=== PATIENT | female | born 1965 | race Caucasian/White ===

== ENCOUNTER 2019-08-17 07:38 | Day surgery (SDC) | payer BC, SELFPAY ==
--- NOTE | 2019-08-11 17:03 | HP.PCM_ITS ---
History and Physical Date of Admission: 08/17/19 HPI: The patient is a 53 year old female presenting for pre-operative visit. She is scheduled for?LAVH, bilateral salpingectomy, for?menorrhagia, adenomyosis, dysmenorrhea, intramural uterine fibroids on?08/17/2019. ??Procedure discussed along with risks, benefits and complications. ?Other alternatives discussed for management. Consent form signed??Yes.? PAST MEDICAL HISTORY PAST MEDICAL HISTORY Diagnosis Date ? Ovarian cyst ? ? age 22/21 ? ? PAST SURGICAL HISTORY PAST SURGICAL HISTORY Procedure Laterality Date ? APPENDECTOMY ? ? ? ORTHOPEDICS SURGERY HX ? ? ? OVARIAN CYSTECTOMY ? ? ? TUBAL LIGATION ? CURRENT MEDICATIONS No current outpatient medications on file. ? No current facility-administered medications for this visit.? ? ALLERGIES:?Patient has no known allergies. ? PERSONAL HISTORY:? SOCIAL HISTORY Social History ? Tobacco Use ? Smoking status: Current Every Day Smoker ? ? Packs/day: 0.40 ? Smokeless tobacco: Never Used Substance Use Topics ? Alcohol use: Yes ? ? Comment: 1 beer a day ? Drug use: No ? FAMILY HISTORY:? FAMILY HISTORY FAMILY HISTORY Problem Relation Age of Onset ? other (bladder cancer) Mother ? ? other (blood cancer) Maternal Grandmother ? ? Stroke Maternal Grandfather ? ? REVIEW OF SYMPTOMS: GENERAL: denies fevers or chills ENDOCRINOLOGY: has not been on steroids Cardiology : denies palpitations or chest pain Respiratory: denies SOB or cough Hematology: denies history of prolonged bleeding or easy bruising or VTE Allergy: Denies history of personal or family history of allergy to anesthesia ? ? PHYSICAL EXAMINATION: ? VITALS:?Last menstrual period 07/16/2019. ? GENERAL:??The patient is well nourished, well hydrated in no acute distress. ?, The patient is oriented to time, place, and person. NECK:?Supple. No lynphadenopathy, normal thyroid, no thyromegaly. LUNGS:?Clear to auscultation bilaterally. no wheezes, rhonchi or rales HEART:?Regular rate and rhythm, Normal heart sounds and No murmurs or gallops ? ? IMPRESSION:?Menorrhagia, adenomyosis, dysmenorrhea, intramural uterine fibroids ? PLAN:???The risks/benefits/alternatives and personal involved for the planned?laparoscopic assisted vaginal hysterectomy with bilateral salpingec xiomara?were reviewed with the patient. Her questions were answered to her satisfaction and she desires to proceed. ?Consent was signed. ?I reviewed with her postop instructions and expectations. ? ? I have reviewed and updated past medical and surgical history, medications and allergies? Plans d/c home same day. This H&P completed in my office on 08/11/2019 Procedure Criteria COVID Risk Discussion: Patient understands risk of being exposed/aquiring COVID19 during hospital stay.
[2019-08-17] VITALS (10 sets, daily range): BP systolic 127–157; BP diastolic 81–96; PULSE 72–94; RESP 14–18; TEMP 36.1–36.6; O2SAT 92–99; BMI 37.0
[2019-08-17] MEDS: Celecoxib 200 MG Capsule 400 MG PO (07:00)
--- NOTE | 2019-08-17 07:55 | EKG12_ITS ---
Test Reason : PRE OP Blood Pressure : / mmHG Vent. Rate : 093 BPM Atrial Rate : 093 BPM P-R Int : 148 ms QRS Dur : 102 ms QT Int : 374 ms P-R-T Axes : 041 031 032 degrees QTc Int : 465 ms Normal sinus rhythm [id number] Abnormal ECG Confirmed by ANTHONY SALMON, MAHENDRA ([id number]), scientific editor RERE MALIK ([id number]) on 08/23/2019 10:47:02 AM Referred By: Kimberly England Confirmed By:MAHENDRA CRUZ MD
[2019-08-17] MEDS: Phenazopyridine 95 MG Tablet 190 MG PO (08:27)
[2019-08-17] MEDS: Acetaminophen 500 MG Tablet 1000 MG PO (08:27)
[2019-08-17 08:28] LABS: Hematocrit 42.8 % (37-47); Hemoglobin 14.8 g/dL (12.0-15.0); Mean Corp Hgb Conc 34.6 g/dL (32-36); Mean Corpuscular Hgb 34.9 pg (27.0-32.0); Mean Corpuscular Volume 100.9 fL (81-99); Mean Platelet Vol. 10.2 fl (6.2-12.0); Platelet Count 216 K/mm3 (150-450); RBC Distribution Width CV 13.7 % (11.6-14.6); RBC Distribution Width SD 50.7 fl (35.1-43.9); Red Blood Count 4.24 M/mm3 (4.2-5.4); White Blood Count 7.8 K/mm3 (4.4-11.0)
[2019-08-17] MEDS: Gabapentin 600 MG Tablet PO (08:28)
[2019-08-17] MEDS: Lactated Ringers 1,000 ML 40 ML IV (08:43)
[2019-08-17 08:54] LABS: Magnesium 2.1 mg/dL (1.6-2.6)
[2019-08-17] MEDS: Cefazolin 2 GM in 0.9% Normal Saline 100 ML IV (09:05)
--- NOTE | 2019-08-17 09:10 | HYST_PTH ---
PATIENT: KEARA BOONE LOC: [facility] [place] U#:[id number] AGE/SX: 53/F ROOM: RE08/17/[address]: Dr. Kimberly England MD : [id number] BED: DIS: 08/17/2019 SPEC #: [id number] RECD: 08/17/19 12:26 STATUS: ABELARDO WHEELER #: [id number] BART: 08/17/19 09:[address]: Kimberly England DEPT: SURGICAL PATHOLOGY RECD BY: Vladimir Wellington ENTERED: 08/17/19 12:37 SP TYPE: HYSTERECT OTHR DR: Penny Primary Care Phys Tissues: Uterus, NOS Procedures: Surgery Specimen Level V HEADER OPERATION: Hysterectomy, LAVH, bilateral salpingectomy PRE-OP DIAGNOSIS: Menorrhagia, adenomyosis, dysmenorrhea TISSUE SUBMITTED: Uterus, bilateral fallopian tubes MICROSCOPIC DIAGNOSIS Uterus, hysterectomy: Cervix - nabothian cysts and minimal chronic inflammation. Endometrium - proliferative endometrium. Myometrium - leiomyomas. Right and left fallopian tubes - benign paratubal cysts. AM:brandy 08/21/19 MICROSCOPIC DESCRIPTION Slides are reviewed. GROSS DESCRIPTION Received in fixative is one container labeled with the patient's name and designated uterus, bilateral fallopian tubes. The specimen consists of a hysterectomy specimen consisting of previously opened uterus with cervix, detached nodular piece and detached bilateral fallopian tubes. The uterus with cervix and detached nodular piece weighs in aggregate 401 gm. The uterus measures 13 x 9 x 10 cm and the detached nodular mass measures 5.5 x 4.5 x 4 cm. The uterus is markedly distorted due to appearance of nodular masses. The ectocervix appears unremarkable. The endocervical canal is partly disrupted and measures 3.5 cm in length. Due to distortion of the uterus, the uterus specimen cannot be oriented. The endometrial cavity measures 7 cm in length and up to 4 cm in width. The endometrium is ryan, glistening without any mass lesion and measures 0.1 cm in thickness. The endometrium measures <0.1 cm in thickness. Sections of the uterine wall reveal multiple nodular masses, intramural, subserosal and submucosal in location. The largest mass measures 6 cm in greatest dimension. Sections of these masses reveal ryan whorled cut surfaces without areas of hemorrhage, necrosis or cystic degeneration. The uninvolved uterine wall measures up to 3.5 cm in thickness. Sections of one of the cornu and the serosal surface reveal a plastic ring consistent with previous tubal occlusion. The detached nodular mass measures 5 x 4 x 4 cm. The bilateral fallopian tubes are not identified as right or left. One of the fallopian tubes measures 5 cm in length and up to 0.6 cm in diameter. The fimbrial end is identified. A paratubal cyst is noted measuring 0.5 cm in greatest dimension. Sections reveal unremarkable cut surfaces. The second fallopian tube has similar appearance to the first one and measures 4.5 cm in length and 0.5 cm in diameter. The fimbrial end is identified. This fallopian tube also shows a plastic ring consistent with previous tubal occlusion. Sections reveal unremarkable cut surfaces. Section of uterine wall also contains a section of nodular masses. Clearance Representative sections are submitted in 12 cassettes as follows: 1 & 2 - cervix, 3-6 - uterine wall, 7 - largest nodular mass, 8 - intermediate sized nodular mass, 9??smaller nodular mass, 10 - detached nodular mass, 11 - one fallopian tube and paratubal cyst, 12??second fallopian tube. / ALINA:brandy 08/17/19 TC:1 CPT: 49105
[2019-08-17 10:16] LABS: Bedside Glucose 92 mg/dL (70-110)
[2019-08-17] MEDS: dexAMETHasone 10 MG/ML Vial 8 MG IV (10:27)
--- NOTE | 2019-08-17 11:23 | PCM.OPRPT ---
Report of Operation Date of Procedure: 08/17/19 Pre-Operative Diagnosis: menorrhagia, abnormal uterine bleeding, pelvic pain, uterine fibroids-intramural Post-Operative Diagnosis: same Surgery/Procedure Performed:: Upper scopic assisted vaginal hysterectomy with bilateral salpingectomy, uterus greater than 250 g personnel records clerk: Madalyn Collins personnel records clerk: Wilmar Plummer [id number] Type of Anesthesia:: General Anesthesiologist: Latasha Rizzo Special Medications: none Specimen's removed: uterus 402gm, cervix, bilateral fallopian tubes Drains: greco Estimated Blood Loss (mL): 50 Fluids Replaced: 1800 cc LR Description of Procedure: The patient was taken to the operating room where she was prepped and draped in the dorsal lithotomy position. Her arms were tucked to the side and padded and her legs were placed in the yellowfin stirrups. Care was taken to ensure that she was placed in a neurologically safe and neutral position. A weighted speculum was placed in the vagina and the anterior lip of the cervix was grasped with a single-tooth tenaculum. The uterus sounded to 12 centimeters. The Anisa cup uterine manipulator was placed and secured. The Greco catheter was placed to straight drain. Attention was turned to the abdominal portion of the case. Before skin incisions were made they were infiltrated with 0.5% Marcaine solution for local anesthetic. A 5 mm left upper quadrant incision was made and while tenting the anterior abdominal wall up with towel clamps a 5 mm blade less trocar and sleeve were advanced directly into the peritoneal cavity. Peritoneal placement was confirmed with the laparoscope the pneumoperitoneum was created, and the underlying abdominal contents were intact. The patient was placed in Trendelenburg and the above findings were noted. Right and left lateral 5 mm trochars were placed under direct visualization without difficulty. Was made to use the left upper quadrant entry and the Anisa cup uterine manipulator because of the weight of the uterus and bulk of the uterus. The antimesenteric portion of the tube was clamped sealed and transected serially on both sides with the LigaSure device. The round ligaments were clamped sealed and transected and a window was made in the peritoneum. The utero-ovarian ligaments were then clamped, sealed and transected with the LigaSure device and the pedicles were hemostatic The bladder flap was dissected down with the LigaSure device and blunt dissection and the uterine arteries were then skeletonized. The uterine arteries were clamped, sealed and transected on both sides with the LigaSure device. At this point the pedicles were all examined and found to be hemostatic. Attention was turned to the vaginal portion of the case. 1% lidocaine with dilute epinephrine solution was used to infiltrate the anterior vaginal epithelium over the cervix. An incision was made circumferentially around the vaginal epithelium and the vaginal epithelium was dissected back with blunt sharp dissection. The anterior colpotomy incision was made. The posterior colpotomy was then made with the White scissors. The posterior peritoneum was tagged with a suture. The uterosacral ligaments were then clamped, transected and suture ligated with 0 Vicryl suture. A second pedicle was taken on each side with the lower portion of the cardinal ligament. This was again clamped, transected and suture-ligated. Small amount of the broad ligament remained on both sides and this was clamped, transected and suture-ligated. There is some small bleeding on the left side from 1 of the pedicles and this was oversewn with an 0 Vicryl suture. Hemostasis was otherwise noted. The uterus was too bulky to deliver through the colpotomy incision so the decision was made to bivalve it. The uterus was bivalved up to the fundus where a 6 cm fibroid was encountered. This was shelled out and this debulked the uterus. Then I was able to bring the uterus out after bivalving it. It was otherwise intact. The pedicles were reexamined and found to be hemostatic. At this point the posterior vaginal cuff was run with a 2-0 Vicryl suture in a running locked fashion. A modified Smith's culdoplasty was then done with a 2-0 PDS suture. Was placed through the posterior vaginal cuff reefed across the peritoneum to both uterosacral ligaments and then back out through the posterior cuff. The vaginal cuff was then closed in a horizontal fashion with interrupted 0 Vicryl [id number] sutures. Care was taken to secure the vagina to the uterosacral ligaments. Smith suture was then secured down and good support was noted. The laparoscope was reinserted into the abdomen and the pneumoperitoneum was re-created. The pedicles were reexamined and found to be hemostatic. The ureters were identified and peristalsing. The vaginal cuff was hemostatic. Tenzin was placed over the peritoneal edges and no active bleeding was noted through the Tenzin. The right and left lateral ports were taken out and the sites were hemostatic. The pneumoperitoneum was released and even under low pressure there was no bleeding of any of the pedicles are vaginal cuff. The umbilical port was removed. The umbilical skin incisions were closed with Monocryl suture and skin glue by Dr. Zamora. The Greco catheter was removed. The vaginal instruments were removed by me and a vaginal sweep was completed by me. The surgery was performed by me with assistance other than the portions dictated as above. There were no qualified residents available for this procedure. All sponge lap and needle counts were correct and the patient was transferred to the recovery room in stable condition. Grafts/Implants Used: none - Complications none - Admit VTE Documentation VTE Present on Admission: No VTE Mechan Device Prophylaxis: SCD's VTE Pharm Prophylaxis ordered?: Yes
[2019-08-17] MEDS: Bupivacaine Mpf 0.5% 30 ML VIAL (11:25)
--- NOTE | 2019-08-17 13:21 | PCM.DC.AHY ---
Discharge Diet: No Restrictions Discharge Activity: Return to Normal Activity, May Not Drive - while taking narcotic pain medications., May Shower, May Take a Tub Bath - in 4 weeks May shower in (days): 1 May resume sexual activity in: 6-8 weeks Call your doctor if your incision/area has: Continuous Slow Oozing, Sudden Increased Bleeding, Increased Pain/ Swelling, Increased Redness, Foul Smelling Discharge Call your doctor if you observe: Fever of 101 or Higher, Inability to urinate, Inability to have a bowel movement, Using more than one pad per hour Cleanse incision/area with: Soap & Water, - - Your incisions have skin glue, it can get wet. Do not peel it off for 2 weeks. It may fall off Allergies/Adverse Reactions: Allergies No Known Allergies Allergy (Verified 08/10/19 13:02) Medications to take at Discharge Ferrous Sulfate [Iron] 325 mg PO DAILY 08/10/19 Ibuprofen [Motrin] 800 mg PO TID PRN PRN #60 tab 08/17/19 Oxycodone [Oxyir] 5 mg PO Q6H PRN PRN 7 Days #20 tab 08/17/19 The following prescriptions were given: Ibuprofen [Motrin] 800 mg PO TID PRN PRN #60 tab PRN Reason: Pain Transmission Status: Received by [facility] Oxycodone [Oxyir] 5 mg PO Q6H PRN PRN 7 Days #20 tab PRN Reason: severe pain Transmission Status: Received by [facility] Orders to be completed after discharge: ,Urine Time Frame: 08/17/19, Facility: [facility], Location: Laboratory Primary Care Physician: Care Physician,No Primary [Primary Care Provider] - Test Results: Test results from this visit will be discussed in further detail at your follow-up appointment, if applicable. Please Follow Up With: Kmiberly England MD - [phone] When: 1-2 and 6 weeks
[2019-08-17] MEDS: Ketorolac 30 MG/ML Syringe IV (14:53)
[2019-08-17 15:11] LABS: Hematocrit 42.1 % (37-47); Hemoglobin 14.2 g/dL (12.0-15.0); Mean Corp Hgb Conc 33.7 g/dL (32-36); Mean Corpuscular Hgb 34.5 pg (27.0-32.0); Mean Corpuscular Volume 102.2 fL (81-99); Mean Platelet Vol. 10.4 fl (6.2-12.0); Platelet Count 201 K/mm3 (150-450); RBC Distribution Width CV 13.4 % (11.6-14.6); RBC Distribution Width SD 50.9 fl (35.1-43.9); Red Blood Count 4.12 M/mm3 (4.2-5.4); White Blood Count 13.4 K/mm3 (4.4-11.0)
== END 2019-08-17 16:15 | disposition home or self-care (01) ==
LOC: SDC 07:39 → AC 07:42
PROVIDERS: Anesthesiology; Referring Provider Obstetrics & Gynecology; Visit Provider Obstetrics & Gynecology
PROC: 0UT9FZZ Resection of Uterus, Via Natural or Artificial Opening With Percutaneous Endoscopic Assistance (ICD-10-PCS; CPT 58262; principal; 2019-08-17 08:45)
DX: N92.0 Excessive and frequent menstruation with regular cycle (principal); D25.1 Intramural leiomyoma of uterus; N94.6 Dysmenorrhea, unspecified; N80.0 Endometriosis of uterus; F17.210 Nicotine dependence, cigarettes, uncomplicated; N83.8 Other noninflammatory disorders of ovary, fallopian tube and broad ligament; N88.8 Other specified noninflammatory disorders of cervix uteri; D26.1 Other benign neoplasm of corpus uteri; F10.20 Alcohol dependence, uncomplicated; Y90.9 Presence of alcohol in blood, level not specified
CPT/HCPCS: 58262; 58571; 36415; 82962; 83735; 85027; 86850; 86900; 86901; 87635; 88307; 93005; G2023; J7120; J2405; U0003

== ENCOUNTER 2023-01-04 10:17 | Emergency (ER) | payer OTHER, SELFPAY ==
[2023-01-04 10:20] VITALS: BP 167/94; PULSE 92; RESP 16; TEMP 36.7; O2SAT 100; BMI 31.2
--- NOTE | 2023-01-04 10:24 | EX.ED.UPPERE ---
HPI History of Present Illness Chief Complaint: Upper Extremity Injury PFSH PFS Home Medications ferrous sulfate 325 mg (65 mg iron) tablet 325 mg PO DAILY 08/10/19 [History Last Taken Unknown] ibuprofen 800 mg tablet 800 mg PO TID PRN PRN Pain #60 tabs 08/17/19 [Rx Last Taken Unknown] Allergy/AdvReac Type Severity Reaction Status Date / Time No Known Allergies Allergy Verified 01/04/23 10:20 Social History Smoking Status: Current every day smoker EXAM Physical Exam Const Vital Signs: 01/04/23 10:20 Temperature 98.1 F Temperature Source Temporal Pulse Rate 92 Respiratory Rate 16 Blood Pressure 167/94 H Blood Pressure Mean 118 Pulse Ox 100 Oxygen Delivery Method Room Air MDM MDM MDM Narrative Medical decision making narrative: HISTORY OF PRESENT ILLNESS: 57-year-old female here with upper extremity injury.Note she was caught in a taper at work. Notes last tetanus was within the last 10 years REVIEW OF SYSTEMS: Pertinent positives: Arm injury Pertinent negatives: Head trauma, loss of consciousness PHYSICAL EXAM: Nursing triage notes reviewed, Vital signs reviewed Constitutional: please see mdm ominal bruit : No CVAT Extremities: No edema full range of motion right shoulder, right elbow and right wrist, no obvious bony deformities Neuro: Intact 5/5 strength with ok sign (median), intact finger abduction (ulnar) intact wrist extension (radial n). Intact sensation in the radial, ulnar, and median nerve distributions. Skin: Approximately 4 x 4 centimeter area of abrasion noted to the dorsal surface of the right midforearm, MEDICAL DECISION MAKING: Chief Complaint: Arm injury External records reviewed: No recent advanced imaging of the involved extremity Consults: none [facility] Narrative: The patient was hemodynamically stable, afebrile, nontoxic-appearing Exam consistent with skin abrasion. Will provide wound care. Gave infection precautions and return instructions. Patient can return to work immediately. The patient and/or family, caregivers express understanding. The patient and/or family, caregivers agrees with the plan. Shared decision making: I will have a discussion with the patient and or visitors regarding risk/benefits of further testing or admission. They will be made aware of of the risk/benefits inherent in this decision they will be given the opportunity to voice understanding. Total critical care time today provided was at least 0 minutes. This excludes separately billable procedures. Critical care time (if documented) is secondary to the patient having high probability of clinically significant/life threatening deterioration in the patient's condition which required my urgent intervention. Impression: \ 1. Skin abrasion Dispo: Discharge Discharge Plan Triage Chief Complaint: Upper Extremity Injury ED Provider: Zachary Melvin Dx/Rx/DC Orders Prescriptions: No Action ferrous sulfate 325 MG tablet 325 mg PO DAILY ibuprofen 800 MG tablet 800 mg PO TID PRN PRN (Reason: Pain) Qty: 60 1RF Primary Care Provider: Care Physician,No Primary Referrals: Care Physician,No Primary [Primary Care Provider] -
== END 2023-01-04 10:57 | disposition home or self-care (01) ==
PROVIDERS: Emergency Provider Emergency Medicine; Visit Provider Emergency Medicine
DX: S50.811A Abrasion of right forearm, initial encounter (principal); W31.89XA Contact with other specified machinery, initial encounter; Y99.0 Civilian activity done for income or pay; F17.200 Nicotine dependence, unspecified, uncomplicated
CPT/HCPCS: 99282